=== PATIENT | male | born 1965 | race Caucasian/White ===

== ENCOUNTER 2020-01-22 00:50 | Emergency (ER) | payer MEDICAID ==
[~2020-01-22] VITALS: Ht 172.7 cm; Wt 81.6 kg
[2020-01-22 01:01] VITALS: Ht 172.7 cm; Wt 81.6 kg
[2020-01-22 02:10] LABS: BASOPHIL % 0.6 % (0-2); RED CELL DISTRIBUTION WIDTH 13.7 % (11.5-14.5)
[2020-01-22 02:11] LABS: PLATELET COUNT 122 x10^3mcL (130-400)
[2020-01-22 02:24] LABS: CALCIUM 8.2 mg/dL (8.5-10.1); CARBON DIOXIDE 25.1 mmol/L (21-32); CHLORIDE SERUM 105 mmol/L (98-107); GFR1 > 60 mL/min; GLUCOSE SERUM 118 mg/dL (74-106); POTASSIUM SERUM 3.5 mmol/L (3.5-5.1); SODIUM SERUM 142 mmol/L (136-145)
[2020-01-22 02:29] LABS: ALKALINE PHOSPHATASE 106 U/L (46-116); ALT/SGPT 45 U/L (16-63); AST/SGOT 76 U/L (15-37); BILIRUBIN TOTAL 0.29 mg/dL (0.20-1.00); TOTAL PROTEIN, SERUM 7.5 g/dL (6.4-8.2)
[2020-01-22 02:33] LABS: ALBUMIN 3.3 g/dL (3.4-5.0)
[2020-01-22 05:20] VITALS: BP 121/82
== END 2020-01-22 07:22 | disposition home or self-care (01) ==
LOC: ED 00:50
PROVIDERS: Student in an Organized Health Care Education/Training Program
DX: S92.521A Displaced fracture of middle phalanx of right lesser toe(s), initial encounter for closed fracture (principal); F10.129 Alcohol abuse with intoxication, unspecified; X58.XXXA Exposure to other specified factors, initial encounter; Y93.89 Activity, other specified; Y92.89 Other specified places as the place of occurrence of the external cause; Y99.8 Other external cause status
CPT/HCPCS: G0480; J7030; Q0092